=== PATIENT | male | born 1980 | race Caucasian/White ===

== ENCOUNTER → 2022-04-26 | Outpatient (CLI) | payer OTHER ==
[2022-04-26 10:24] LABS: Anion Gap 10.4 mmol/L (10.00-18.00); Carbon Dioxide 25.2 mmol/L (20.0-27.5); Potassium 4.3 mmol/L (3.5-5.5)
[2022-04-26 10:27] LABS: Basophils # (A) 0.01 X 10*3/uL (0.00-0.10); Basophils % (A) 0.3 %; Eosinophils # (A) 0.05 X 10*3/uL (0.04-0.35); Eosinophils % (A) 1.4 %; HCT 42.6 % (39.6-50.0); Immature Grans, Automated 0.3 %; Lymphocytes # (A) 1.75 X 10*3/uL (0.90-5.00); Lymphocytes % (A) 48.7 %; MCH 28.2 pg (27.0-32.0); MCHC 32.9 g/dL (32.0-37.0); MCV 85.7 fL (80.0-97.0); Mean Platelet Volume 10.8 fL (9.5-12.2); Monocytes # (A) 0.35 X 10*3/uL (0.20-1.00); Monocytes % (A) 9.7 %; NRBC Per 100 WBC 0 /100 WBCS (0.0-0.0); Neutrophils # (A) 1.42 X 10*3/uL (1.80-7.70); Neutrophils % (A) 39.6 %; Platelet Count 218 X 10*3/uL (140-440); RBC 4.97 X 10*6/uL (4.40-5.60); RDW 12.4 % (11.5-14.5); WBC 3.59 X 10*3/uL (4.50-10.00)
== END | disposition home or self-care (01) ==
LOC: LABPAT 07:22
PROVIDERS: ATTEND Orthopaedic Surgery Hand Surgery
DX: Z01.812 Encounter for preprocedural laboratory examination (principal); G56.01 Carpal tunnel syndrome, right upper limb
CPT/HCPCS: 80051; 85025

== ENCOUNTER 2022-05-03 09:25 | Day surgery (SDC) | payer OTHER ==
--- NOTE | 2022-05-01 09:35 | P.HPOR ---
History of Present Illness H&P Date: 05/01/22 Chief Complaint: Right carpal tunnel syndrome Subjective: This is a 41 year old male that presents today for initial evaluation regarding bilateral hand pain and paresthesias with the right being slightly more symptomatic than then left. He has daily numbness and tingling in the fingers, mainly the index fingers. He has tried splinting for the wrist but states he had no relief from his symptoms. He recently had an EMG/NCV 2 months ago and is here to discuss results. He denies any injury or inciting event and works as a astudillo. Physical Examination: RUE: AIN/PIN/Radial/Ulnar/Median motor intact. Radial/Ulnar/Median SILT. 2+/4 Radial/Ulnar pulses palpated. 5/5 APB, 5/5 FDI. Negative Finkelsteins, negative CMC grind, positive Durkan's compression. LUE: AIN/PIN/Radial/Ulnar/Median motor intact. Radial/Ulnar/Median SILT. 2+/4 Radial/Ulnar pulses palpated. 5/5 APB, 5/5 FDI. Negative Finkelsteins, negative CMC grind, positive Durkan's compression. Imaging: X-Rays of the right hand demonstrate no acute osseus abnormality X-Rays of the left hand demonstrate no acute osseus abnormality EMG/NCV Mild right carpal tunnel syndrome, moderate left carpal tunnel syndrome. Impression: 1.) B/L Carpal tunnel syndrome Plan: Diagnosis and treatment options were discussed with the patient. He has had now over 1 year of symptoms and is no longer responding to conservative treatment for his bilateral carpal tunnel syndrome. He would like to pursue surgical intervention with right endoscopic vs open carpal tunnel release. Risks and benefits of surgery including bleeding, infection, damage to surrounding tissue, need for further surgery, possible need to convert to open procedure, residual numbness were discussed and the patient wished to go forward with surgery. -Broderick Vidales DO Orthopedic Hand/Upper Extremity Surgeon Physical Examination Osteopathic Statement: *. No significant issues noted on an osteopathic structural exam other than those noted in the History and Physical/Consult.
[2022-05-01 16:09] VITALS: BMI 25.5
[~2022-05-03 09:25] MED LIST: LACTATED RINGERS 1,000 ML IV SCH; LIDOCAINE 1% (10MG/ML) FOR IV START INTRADERMA PRN
[2022-05-03 09:58] VITALS: TEMP 97.6
[2022-05-03] MEDS ORDERED: PROPOFOL 10 MG/ML 20 ML VIAL IV ONE (11:17)
[2022-05-03] MEDS ORDERED: fentaNYL (PF) 50 MCG/ML 2 ML AMP ONE (11:17)
[2022-05-03] MEDS ORDERED: MIDAZOLAM 2 MG/2 ML VIAL ONE (11:17)
[2022-05-03] MEDS ORDERED: BUPIVACAINE (PF) 0.5% 30 ML VIAL SQ ONE (11:30)
[2022-05-03] MEDS ORDERED: LIDOCAINE 1% INJ 10MG/ML (20 ML MDV) SQ ONE (11:30)
[2022-05-03 12:04] VITALS: RESP 16
[2022-05-03 12:07] VITALS: BP 106/67; PULSE 47
== END 2022-05-03 12:30 | disposition home or self-care (01) ==
LOC: OR 09:25
PROVIDERS: ATTEND Orthopaedic Surgery Hand Surgery
DX: G56.03 Carpal tunnel syndrome, bilateral upper limbs (principal); J44.9 Chronic obstructive pulmonary disease, unspecified; K21.9 Gastro-esophageal reflux disease without esophagitis; Z79.899 Other long term (current) drug therapy; Z87.891 Personal history of nicotine dependence
CPT/HCPCS: 29848; J2250; J2001; J3010; J2704